=== PATIENT | female | born 1990 | race Caucasian/White ===

== ENCOUNTER → 2021-03-12 08:15 | Outpatient (CLI) | payer OTHER, MEDICAID, SELFPAY ==
[2021-03-13 22:59] LABS: COVID19 - ORCAS (NP or Nasal) POSITIVE (Negative)
== END ==
PROVIDERS: PCP Family Medicine; Visit Provider Family Medicine
DX: U07.1 COVID-19 (principal); Z20.822 Contact with and (suspected) exposure to COVID-19
CPT/HCPCS: C9803; U0003